=== PATIENT | male | born 1970 | race African-American/Black ===

== ENCOUNTER 2020-05-23 23:50 | Emergency (ER) | payer OTHER ==
[~2020-05-23 23:50] MED LIST: BACLOFEN 20MG T20 MG PO; MEDROL 4MG DOSEP4 MG PO
[2020-05-24] MEDS ORDERED: NORCO 5-325 TA1 EACH PO ×2 (02:26→02:29)
== END 2020-05-24 02:30 | disposition home or self-care (01) ==
LOC: FER 23:50
DX: S92.902A Unspecified fracture of left foot, initial encounter for closed fracture (principal); X50.1XXA Overexertion from prolonged static or awkward postures, initial encounter; Y92.009 Unspecified place in unspecified non-institutional (private) residence as the place of occurrence of the external cause; Z91.048 Other nonmedicinal substance allergy status
CPT/HCPCS: 73630

== ENCOUNTER 2020-10-23 10:15 | Emergency (ER) | payer OTHER ==
[~2020-10-23 10:15] MED LIST changes: +NORCO 5-325 TA1 EACH PO
[2020-10-23] MEDS ORDERED: MEDROL 4MG DOSEP4 MG PO (13:24)
[2020-10-23] MEDS ORDERED: NORCO 5-325 TA1 EACH PO (13:24)
== END 2020-10-23 13:45 | disposition home or self-care (01) ==
LOC: FER 10:15
DX: M47.815 Spondylosis without myelopathy or radiculopathy, thoracolumbar region (principal); M51.35 Other intervertebral disc degeneration, thoracolumbar region; Z91.02 Food additives allergy status
CPT/HCPCS: 72128; 72131